=== PATIENT | male | born 1945 | race Caucasian/White ===

== ENCOUNTER 2016-12-05 11:55 | Observation (INO) | payer OTHER, MEDICARE ==
[~2016-12-05] VITALS: Ht 180.3 cm; Wt 90.0 kg
[2016-12-05 11:56] VITALS: BP 134/63; PULSE 68; RESP 20; TEMP 98.3; O2SAT 95
--- NOTE | 2016-12-05 12:04 | PD ---
Physical Exam Date Seen by Provider: Dec 05, 2016 Time Seen by Provider: 12:02 Narrative 71-year-old white male resents emergency department after being referred by the [place] for evaluation of left arm pain and weakness. Patient has a history of coronary artery disease. He also has a history of [place] and PTSD. He is 100% service-connected. He states that pain started last evening. He denies any trauma. The patient states that the pain appears to be localized in his elbow which causes him to feel weak. He denies any anginal chest pain. No shortness breath or wheezing. Vital signs reviewed. Awaiting bed placement. Data Data Last Documented VS Vital Signs Date Time Temp Pulse Resp B/P (MAP) Pulse Ox O2 Delivery O2 Flow Rate FiO2 12/05/16 11:56 98.3 68 20 134/63 (86) 95 Room Air Orders Orders Electrocardiogram (12/05/16 12:02) [facility] Medical Record Reviewed: No Supervised Visit with MICHAEL: Mohan Son Dec 05, 2016 12:04
[2016-12-05] MEDS ORDERED: SIMV40TA PO (12:31)
[2016-12-05] MEDS ORDERED: [UNRECOGNIZED DRUG - CODE] RECTAL (12:31)
[2016-12-05] MEDS ORDERED: AMLO10TA2 PO (12:31)
[2016-12-05] MEDS ORDERED: APRI0.372 PO (12:31)
[2016-12-05] MEDS ORDERED: HYDR25TA5 PO (12:31)
[2016-12-05] MEDS ORDERED: POTA-243 PO ×2 (12:31→16:53)
[2016-12-05] MEDS ORDERED: FERR325T8 PO (12:31)
[2016-12-05] MEDS ORDERED: ASPI81TA11 PO (12:31)
--- NOTE | 2016-12-05 12:50 | RADRPT ---
EXAM DATE/TIME: 12/05/2016 12:39 [facility] COMPARISON: No previous studies available for comparison. INDICATIONS : Midsternal to left chest pains radiating into left arm, with left arm numbness. MEDICAL HISTORY : Myocardial infarction. SURGICAL HISTORY : Cardiac cath. ENCOUNTER: Initial ACUITY: 2 days PAIN SCORE: 9/10 LOCATION: Left chest FINDINGS: Portable AP view of the chest demonstrates a normal-sized cardiac silhouette. No effusion, consolidat ion, or pneumothorax is visualized. The bones and soft tissues demonstrate no acute abnormality. CONCLUSION: No acute cardiopulmonary abnormality is identified. Giuliano Corrales MD on December 05, 2016 at 12:47 Board Certified Radiologist. This report was verified electronically.
[2016-12-05] MEDS ORDERED: ACETAMINOPHEN 325 MG TAB PO ONE (13:00)
[2016-12-05 13:02] LABS: BASOPHIL % 0.2 % (0.0-2.0); EOSINOPHIL % 0.1 % (0.0-4.0); HEMATOCRIT 39.7 % (39.0-51.0); HEMO FLAGS DIFF FINAL; LYMPH % 8.5 % (9.0-44.0); LYMPHOCYTE # 0.9 TH/MM3 (1.0-4.8); MEAN CELL VOLUME 91.7 FL (80.0-100.0); MEAN CORPUSCULAR HEMOGLOBIN 31.5 PG (27.0-34.0); MEAN CORPUSCULAR HGB CONC 34.3 % (32.0-36.0); NEUT % 78.2 % (16.0-70.0); PLATELET COUNT 223 TH/MM3 (150-450); RED BLOOD COUNT 4.33 MIL/MM3 (4.50-5.90); RED CELL DISTRIBUTION WIDTH 13.3 % (11.6-17.2); WHITE BLOOD COUNT 10.2 TH/MM3 (4.0-11.0)
--- NOTE | 2016-12-05 13:05 | PD ---
HPI Chief Complaint: Cardiac Complaint Time Seen by Provider: 12:18 Travel History International Travel<30 days: No Contact w/Intl Traveler<30days: No Traveled to known affect area: No History of Present Illness HPI 71-year-old male that presents to the ED for evaluation of left-sided shoulder pain that radiates down the left arm with no injury since yesterday. Patient has a significant history including coronary artery disease about 20 years ago. Patient takes medications for high blood pressure, high cholesterol and aspirin daily. Patient states that she used to smoke but no longer. He used to take opiate medication about 3 years ago but no longer takes them and refuses any open medication today. Per patient she is mainly here because his concerned about cardiac disease. He has not had a stress test in about 20 years per patient. He has no follow with [facility]. Patient briefly mention to the ED triage provider that he was also feeling depressed but no suicidal or homicidal. I did offer patient psychiatric evaluation today and he declined stating that he has his own psychiatrist. Per patient he is mainly here for the left-sided shoulder discomfort. Per patient the pain is reproducible with movement. He denies any injury or trauma. Per patient at the moment is 3 out of 10. Nothing makes it better. Per patient when he moves it makes it worse. Mainly on the right side but radiates down the arm. Allergy to penicillin. PFSH Past Medical History Anxiety: Yes Cardiovascular Problems: Yes ([place]) Coronary Artery Disease: Yes Myocardial Infarction: Yes Past Surgical History Other Surgery: Yes (SHRAPNAL REMOVED FROM LEGS) Social History Alcohol Use: No Tobacco Use: No Substance Use: Yes (THC) Allergies-Medications (Allergen,Severity, Reaction): Coded Allergies: Penicillins (Verified Allergy, Mild, Rash, 12/05/16) Reported Meds & Prescriptions Reported Meds & Active Scripts Active Reported Simvastatin 40 Mg Tab 40 Mg PO HS Klor-Con 10 (Potassium Chloride) 10 Meq Tab 10 Meq PO QID Rowasa Enema (Mesalamine-Cleanser Enema) 4 Gm/60 Ml Enem 4 Gm RECTAL HS Apriso (Mesalamine) 0.375 Gm Caper 1.5 Gm PO DAILY Hydrochlorothiazide 25 Mg Tab 25 Mg PO DAILY Ferrous Sulfate 325 Mg (65 Mg Iron) Tablet 325 Mg PO DAILY Aspirin EC (Aspirin) 81 Mg Tabdr 81 Mg PO DAILY Amlodipine (Amlodipine Besylate) 10 Mg Tab 10 Mg PO DAILY Review of Systems Except as stated in HPI: all other systems reviewed are Neg Physical Exam Narrative GENERAL: SKIN: Warm and dry. HEAD: Atraumatic. Normocephalic. EYES: Pupils equal and round. No scleral icterus. No injection or drainage. ENT: No nasal bleeding or discharge. Mucous membranes pink and moist. Tongue is midline. No uvula deviation. NECK: Trachea midline. No JVD. CARDIOVASCULAR: Regular rate and rhythm. No murmurs, S3, S4. RESPIRATORY: No accessory muscle use. Clear to auscultation. Breath sounds equal bilaterally. GASTROINTESTINAL: Abdomen soft, non-tender, nondistended. Hepatic and splenic margins not palpable. MUSCULOSKELETAL: Extremities without clubbing, cyanosis, or edema. No obvious deformities. Full range of motion of the upper and lower extremities bilaterally. Some pain reproducible with range of motion of the left arm but not completely. NEUROLOGICAL: Awake and alert. No obvious cranial nerve deficits. Motor grossly within normal limits. Five out of 5 muscle strength in the arms and legs. Normal speech. PSYCHIATRIC: Appropriate mood and affect; insight and judgment normal. Data Data Last Documented VS Vital Signs Date Time Temp Pulse Resp B/P (MAP) Pulse Ox O2 Delivery O2 Flow Rate FiO2 12/05/16 11:56 98.3 68 20 134/63 (86) 95 Room Air Orders Orders Electrocardiogram (12/05/16 12:02) Electrocardiogram (12/05/16 12:18) Complete Blood Count With Diff (12/05/16 12:18) Comprehensive Metabolic Panel (12/05/16 12:18) Ckmb (Isoenzyme) Profile (12/05/16 12:18) Troponin I (12/05/16 12:18) Prothrombin Time / Inr (Pt) (12/05/16 12:18) Act Partial Throm Time (Ptt) (12/05/16 12:18) Lipase (12/05/16 12:18) Chest, Single Ap (12/05/16 12:18) Iv Access Insert/Monitor (12/05/16 12:18) Ecg Monitoring (12/05/16 12:18) Oximetry (12/05/16 12:18) Drug Screen, Random Urine (12/05/16 12:18) Alcohol (Ethanol) (12/05/16 12:18) Salicylates (Aspirin) (12/05/16 12:18) Tylenol (Acetaminophen) (12/05/16 12:18) Us Arm Venous Doppler (12/05/16 ) Humerus (Min 2vws) (12/05/16 ) Acetaminophen (Tylenol) (12/05/16 13:00) Aspirin (Aspirin) (12/05/16 13:15) Potassium Chloride (Kcl) (12/05/16 14:00) Admit Order (Ed Use Only) (12/05/16 14:15) Labs Laboratory Tests Test 12/05/16 12:30 12/05/16 13:15 White Blood Count 10.2 TH/MM3 Red Blood Count 4.33 MIL/MM3 Hemoglobin 13.6 GM/DL Hematocrit 39.7 % Mean Corpuscular Volume 91.7 FL Mean Corpuscular Hemoglobin 31.5 PG Mean Corpuscular Hemoglobin Concent 34.3 % Red Cell Distribution Width 13.3 % Platelet Count 223 TH/MM3 Mean Platelet Volume 8.8 FL Neutrophils (%) (Auto) 78.2 % Lymphocytes (%) (Auto) 8.5 % Monocytes (%) (Auto) 13.0 % Eosinophils (%) (Auto) 0.1 % Basophils (%) (Auto) 0.2 % Neutrophils # (Auto) 8.0 TH/MM3 Lymphocytes # (Auto) 0.9 TH/MM3 Monocytes # (Auto) 1.3 TH/MM3 Eosinophils # (Auto) 0.0 TH/MM3 Basophils # (Auto) 0.0 TH/MM3 CBC Comment DIFF FINAL Differential Comment Prothrombin Time 10.8 SEC Prothromb Time International Ratio 1.0 RATIO Activated Partial Thromboplast Time 26.7 SEC Blood Urea Nitrogen 15 MG/DL Creatinine 1.26 MG/DL Random Glucose 122 MG/DL Total Protein 7.5 GM/DL Albumin 3.6 GM/DL Calcium Level 8.8 MG/DL Alkaline Phosphatase 83 U/L Aspartate Amino Transf (AST/SGOT) 12 U/L Alanine Aminotransferase (ALT/SGPT) 19 U/L Total Bilirubin 1.0 MG/DL Sodium Level 138 MEQ/L Potassium Level 2.8 MEQ/L Chloride Level 101 MEQ/L Carbon Dioxide Level 28.1 MEQ/L Anion Gap 9 MEQ/L Estimat Glomerular Filtration Rate 57 ML/MIN Total Creatine Kinase 74 U/L Troponin I LESS THAN 0.02 NG/ML Lipase 43 U/L Acetaminophen Level LESS THAN 2.0 MCG/ML Ethyl Alcohol Level LESS THAN 3 MG/DL Salicylates Level LESS THAN 1.7 MG/DL MDM Medical Decision Making Medical Screen Exam Complete: Yes Emergency Medical Condition: Yes Medical Record Reviewed: Yes Interpretation(s) EKG shows sinus rhythm with no sign of acute ischemia or arrhythmia read by me and attending. Troponin and CK-MB negative. Last Impressions Chest X-Ray 12/05/16 1218 Signed Impressions: Service Date/Time: Monday, December 05, 2016 12:39 - CONCLUSION: No acute cardiopulmonary abnormality is identified. Giuliano Corrales MD Upper Extremity Ultrasound 12/05/16 0000 Signed Impressions: Service Date/Time: Monday, December 05, 2016 12:50 - CONCLUSION: Negative for deep venous thrombosis. Vin Tariq MD FACR Humerus X-Ray 12/05/16 0000 Signed Impressions: Service Date/Time: Monday, December 05, 2016 13:12 - CONCLUSION: Mild degenerative changes AC joint otherwise negative for fracture.. Vin Tariq MD FACR CBC & BMP Diagram 12/05/16 12:30 Total Protein 7.5, Albumin 3.6, Calcium Level 8.8, Alkaline Phosphatase 83, Aspartate Amino Transf (AST/SGOT) 12 L, Alanine Aminotransferase (ALT/SGPT) 19, Total Bilirubin 1.0 Lipase within normal limits. Differential Diagnosis Chest pain versus ACS versus a typical chest pain versus DVT versus arm pain versus normal exam Narrative Course 71-year-old male that presents to the ED for evaluation of left-sided arm pain with concern for heart disease. Patient does have a significant history of ACS including having CABG himself. He states that he developed the pain yesterday with no injury. He denies doing anything extraneous. Patient was concerned ACS. Patient was seen at the [facility] today and was sent here for evaluation of this. He also did complain of some depression to the initial triage provider but he states that he does not want to be evaluated for that more for the left arm pain. Patient does have risk factors including age, or history of smoking, hypertension, heart disease on himself. He has not had a stress test in some time. At this time I recommend labs and imaging. Patient was given aspirin and Tylenol for his discomfort as well as for ACS. Labs and imaging showed no sign of acute disease. More specifically no sign of blood clots or positive troponin. Patient feels reassured. I discussed the case with my attending Dr. Wharton who recommends admission to the chest pain center secondary to her risk factors and possibility of this still being a cardiac equivalent. This was discussed in length with the patient who is in agreement with admission for the chest pain center. Patient was admitted. Diagnosis Primary Impression: Chest pain in adult Admitting Information Admitting Physician Requests: Observation Guille Nicholas Dec 05, 2016 13:05
[2016-12-05 13:15] LABS: APTT (PATIENT) 26.7 SEC (24.3-30.1); PROTHROMBIN TIME - PATIENT 10.8 SEC (9.8-11.6)
[2016-12-05] MEDS ORDERED: ASPIRIN 325 MG TAB PO ONE (13:15)
--- NOTE | 2016-12-05 13:17 | RADRPT ---
EXAM DATE/TIME: 12/05/2016 13:12 [facility] COMPARISON: No previous studies available for comparison. INDICATIONS : Left arm pain. MEDICAL HISTORY : Myocardial infarction. SURGICAL HISTORY : Cardiac cath. ENCOUNTER: Initial ACUITY: 1 day PAIN SCORE: 8/10 LOCATION: Left Humerus. FINDINGS: Two view examination of the left humerus demonstrates no evidence of fracture or dislocation. Bony m ineralization is normal. The soft tissue structures are intact. CONCLUSION: Mild degenerative changes AC joint otherwise negative for fracture.. Vin Tariq MD FACR on December 05, 2016 at 13:15 Board Certified Radiologist. This report was verified electronically.
--- NOTE | 2016-12-05 13:30 | RADRPT ---
EXAM DATE/TIME: 12/05/2016 12:50 [facility] COMPARISON: No previous studies available for comparison. INDICATIONS : Left arm swelling. MEDICAL HISTORY : Myocardial infarction. Coronary artery disease. SURGICAL HISTORY : Shrapnel removed from leg. ENCOUNTER: Initial ACUITY: 1 day PAIN SCORE: 8/10 LOCATION: Left arm. FINDINGS: There is spontaneous flow documented in the brachial, basilic, cephalic, axillary, and subclavian vei ns. The vessels are compressible and augmentation response is documented. No filling defects are se en. The flow is phasic with respiration. Direction of flow in the jugular vein is caudal. CONCLUSION: Negative for deep venous thrombosis. Vin Tariq MD FACR on December 05, 2016 at 13:28 Board Certified Radiologist. This report was verified electronically.
[2016-12-05 13:41] LABS: ALKALINE PHOSPHATASE 83 U/L (45-117); ALT (GPT) 19 U/L (12-78); ANION GAP 9 MEQ/L (5-15); AST (GOT) 12 U/L (15-37); BICARBONATE 28.1 MEQ/L (21.0-32.0); BLOOD UREA NITROGEN 15 MG/DL (7-18); CHLORIDE 101 MEQ/L (98-107); GLOMERULAR FILTRATION RATE 57 ML/MIN (>89); SODIUM (NA) 138 MEQ/L (136-145)
[2016-12-05 13:44] LABS: CREATINE KINASE 74 U/L (39-308)
[2016-12-05 13:45] LABS: ACETAMINOPHEN LESS THAN 2.0 MCG/ML (10.0-30.0); ALCOHOL LESS THAN 3 MG/DL (0-5)
[2016-12-05 13:49] LABS: POTASSIUM 2.8 MEQ/L (3.5-5.1)
[2016-12-05] MEDS ORDERED: POTASSIUM CHLORIDE 20 MEQ CONTROLLED RELEASE TAB PO ONE (14:00)
[2016-12-05] MEDS ORDERED: METO50TA PO (15:06)
--- NOTE | 2016-12-05 15:12 | HHI.HP ---
HPI Primary Care Physician [facility] Chief Complaint Left arm pain History of Present Illness This is a 71-year-old male with stated history of CAD that presents to ED with a complaint of waking up last evening was left arm pain. He specifically points to his left elbow and states that it hurts to move it. Denies recent trauma. Denies chest discomfort. Denies shortness breath, nausea, or diaphoresis. He states that discomfort is better constantly since last night but is worsened with even the slightest movement. Denies neck or back pain. Denies numbness or tingling or weakness in the extremity. States that he has heart disease. States that 20 years ago he had a cardiac catheterization in [place] with angioplasty. Has not followed up with cardiology since. He states the [place] physician he sees at the [facility] takes care everything. Denies recent illness. Denies fevers or chills. Patient was found to have a potassium of 2.8 in the ED. States he has been on hydrochlorothiazide but no potassium supplementation for 2 years. Review of Systems General: Patient denies fevers, chills recent, and recent travel HEENT: Patient denies headache, sore throat, difficulty swallowing. Cardiovascular: Denies chest discomfort as mentioned above. Denies sensation of heart beating rapidly or irregularly. No syncope. Respiratory: Denies shortness of breath or inspirational chest discomfort. Denies coughing wheezing or hemoptysis. GI: Patient denies nausea, vomiting, diarrhea, abdominal pain, bloody stools. Musculoskeletal: Complains of pain in his left elbow. The discomfort radiates proximally and distally. Denies trauma. Denies swelling. Has not noticed discoloration. Neurovascular: Patient denies numbness, tingling, weakness in extremities. Denies headache. Endocrine: Denies polyuria and polydipsia. Hematologic: Denies easy bruising. Skin: Denies rash or itching. Past Family Social History Allergies: Coded Allergies: Penicillins (Verified Allergy, Mild, Rash, 12/05/16) Past Medical History Stated history of CAD with angioplasty proximally 20 years ago in [place]. Hyperlipidemia, hypertension, PTSD, ulcerative colitis. Denies diabetes. Past Surgical History Cardiac catheterization with angioplasty about 20 years ago. Surgery on his legs during [place]. Reported Medications Reported Meds & Active Scripts Active Reported Simvastatin 40 Mg Tab 40 Mg PO HS Klor-Con 10 (Potassium Chloride) 10 Meq Tab 10 Meq PO QID Rowasa Enema (Mesalamine-Cleanser Enema) 4 Gm/60 Ml Enem 4 Gm RECTAL HS Apriso (Mesalamine) 0.375 Gm Caper 1.5 Gm PO DAILY Hydrochlorothiazide 25 Mg Tab 25 Mg PO DAILY Ferrous Sulfate 325 Mg (65 Mg Iron) Tablet 325 Mg PO DAILY Aspirin EC (Aspirin) 81 Mg Tabdr 81 Mg PO DAILY Amlodipine (Amlodipine Besylate) 10 Mg Tab 10 Mg PO DAILY Active Ordered Medications Current Medications Medications (Trade) Dose Ordered Sig/Alejandro Route Start Time Stop Time Status Last Admin (NS Flush) 2 ml UNSCH PRN IVF 12/05/16 15:15 UNV (NS Flush) 2 ml BID IVF 12/05/16 21:00 UNV (Tylenol) 500 mg Q4H PRN PO 12/05/16 15:15 UNV ([place] 7.5-325 Mg) 1 tab Q4H PRN PO 12/05/16 15:15 UNV (Zofran Inj) 4 mg Q6H PRN IV 12/05/16 15:15 UNV Family History Patient does not really know his family medical history. Social History Patient quit smoking approximately 30 years ago but prior that he smoked about 1 pack of cigarettes daily for 20 years. Denies alcohol for 40 years. Smokes marijuana 3-4 times a week. Physical Exam Vital Signs Vital Signs Date Time Temp Pulse Resp B/P (MAP) Pulse Ox O2 Delivery O2 Flow Rate FiO2 12/05/16 11:56 98.3 68 20 134/63 (86) 95 Room Air Physical Exam GENERAL: This is a well-nourished, well-developed patient, in no apparent distress. Patient speaks in clear complete sentences. Patient is pleasant. HEENT: Head is atraumatic and normocephalic. Neck is supple without lymphadenopathy and trachea is midline. No JVD or carotid bruits. CARDIOVASCULAR: Regular rate and rhythm without murmurs, gallops, or rubs. RESPIRATORY: Clear to auscultation. Breath sounds equal bilaterally. No wheezes , rales, or rhonchi. Chest wall is nontender. No use of accessory muscles. GASTROINTESTINAL: Abdomen is nontender, nondistended. Abdomen soft. No obvious pulsatile mass or bruit. No CVA tenderness. Strong femoral pulses bilaterally. Normal bowel sounds in all quadrants. MUSCULOSKELETAL: There is discomfort when palpating left elbow on antecubital fossa region as well as the posterior aspect. Discomfort with flexion, extension, and internal and external rotation. No erythema or edema. Strong radial pulses. No calf tenderness or edema, no Homans sign. Strong pulses in upper and lower extremities. NEUROLOGICAL: Patient is alert and oriented. Cranial nerves 2-12 are grossly intact. No focal deficits and speech is clear. SKIN: No rash and turgor is normal. Laboratory Laboratory Tests Test 12/05/16 12:30 12/05/16 13:15 12/05/16 14:30 White Blood Count 10.2 Red Blood Count 4.33 Hemoglobin 13.6 Hematocrit 39.7 Mean Corpuscular Volume 91.7 Mean Corpuscular Hemoglobin 31.5 Mean Corpuscular Hemoglobin Concent 34.3 Red Cell Distribution Width 13.3 Platelet Count 223 Mean Platelet Volume 8.8 Neutrophils (%) (Auto) 78.2 Lymphocytes (%) (Auto) 8.5 Monocytes (%) (Auto) 13.0 Eosinophils (%) (Auto) 0.1 Basophils (%) (Auto) 0.2 Neutrophils # (Auto) 8.0 Lymphocytes # (Auto) 0.9 Monocytes # (Auto) 1.3 Eosinophils # (Auto) 0.0 Basophils # (Auto) 0.0 CBC Comment DIFF FINAL Differential Comment Prothrombin Time 10.8 Prothromb Time International Ratio 1.0 Activated Partial Thromboplast Time 26.7 Blood Urea Nitrogen 15 Creatinine 1.26 Random Glucose 122 Total Protein 7.5 Albumin 3.6 Calcium Level 8.8 Alkaline Phosphatase 83 Aspartate Amino Transf (AST/SGOT) 12 Alanine Aminotransferase (ALT/SGPT) 19 Total Bilirubin 1.0 Sodium Level 138 Potassium Level 2.8 Chloride Level 101 Carbon Dioxide Level 28.1 Anion Gap 9 Estimat Glomerular Filtration Rate 57 Total Creatine Kinase 74 Troponin I LESS THAN 0.02 Lipase 43 Acetaminophen Level LESS THAN 2.0 Ethyl Alcohol Level LESS THAN 3 Salicylates Level LESS THAN 1.7 Result Diagram: 12/05/16 1230 12/05/16 1230 Imaging Last 48 hours Impressions Chest X-Ray 12/05/16 1218 Signed Impressions: Service Date/Time: Monday, December 05, 2016 12:39 - CONCLUSION: No acute cardiopulmonary abnormality is identified. Giuliano Corrales MD Upper Extremity Ultrasound 12/05/16 0000 Signed Impressions: Service Date/Time: Monday, December 05, 2016 12:50 - CONCLUSION: Negative for deep venous thrombosis. Vin Tariq MD FACR Humerus X-Ray 12/05/16 0000 Signed Impressions: Service Date/Time: Monday, December 05, 2016 13:12 - CONCLUSION: Mild degenerative changes AC joint otherwise negative for fracture.. Vin Tariq MD FACR Course Initial EKG is sinus rhythm without significant ST segment depressions or elevations. Caprini VTE Risk Assessment Caprini VTE Risk Assessment: Mod/High Risk (score >= 2) Caprini Risk Assessment Model Point Value = 1 Point Value = 2 Point Value = 3 Point Value = 5 Age 41-60 Minor surgery BMI > 25 kg/m2 Swollen legs Varicose veins or History of unexplained or recurrent spontaneous Oral contraceptives or hormone replacement Sepsis (< 1 month) Serious lung disease, including pneumonia (< 1 month) Abnormal pulmonary function Acute myocardial infarction Congestive heart failure (< 1 month) History of inflammatory bowel disease Medical patient at bed rest Age 61-74 Arthroscopic surgery Major open surgery (> 45 min) Laparoscopic surgery (> 45 min) Malignancy Confined to bed (> 72 hours) Immobilizing plaster cast Central venous access Age >= 75 History of VTE Family history of VTE Factor V Leiden Prothrombin [id number] Lupus anticoagulant Anticardiolipin antibodies Elevated serum homocysteine Heparin-induced thrombocytopenia Other congenital or acquired thrombophilia Stroke (< 1 month) Elective arthroplasty Hip, pelvis, or leg fracture Acute spinal cord injury (< 1 month) Prophylaxis Regimen Total Risk Factor Score Risk Level Prophylaxis Regimen 0-1 Low Early ambulation 2 Moderate Order ONE of the following: *Sequential Compression Device (SCD) *Heparin 5000 units SQ BID 3-4 Higher Order ONE of the following medications: *Heparin 5000 units SQ TID *Enoxaparin/Lovenox 40 mg SQ daily (WT < 150 kg, CrCl > 30 mL/min) *Enoxaparin/Lovenox 30 mg SQ daily (WT < 150 kg, CrCl > 10-29 mL/min) *Enoxaparin/Lovenox 30 mg SQ BID (WT < 150 kg, CrCl > 30 mL/min) AND/OR *Sequential Compression Device (SCD) 5 or more Highest Order ONE of the following medications: *Heparin 5000 units SQ TID (Preferred with Epidurals) *Enoxaparin/Lovenox 40 mg SQ daily (WT < 150 kg, CrCl > 30 mL/min) *Enoxaparin/Lovenox 30 mg SQ daily (WT < 150 kg, CrCl > 10-29 mL/min) *Enoxaparin/Lovenox 30 mg SQ BID (WT < 150 kg, CrCl > 30 mL/min) AND *Sequential Compression Device (SCD) Assessment and Plan Assessment and Plan * Arm pain: Patient's discomfort appears to be musculoskeletal in nature. He will continue to have serial cardiac enzymes and EKGs for ruling out purposes and will be seen by Dr. Justo Elena of cardiology in the chest pain center and at that time further plan will be determined. X-rays of the humerus do not reveal any acute. No DVT. * Hypertension: We'll discuss Hydrocort thiazide with Dr. Justo Elena. Otherwise resume all medication. He states he has continued Hydrocort thiazide but has not taken Testim supplementation for 2 years. * Hypokalemia: We'll replace potassium and discuss medication. * Hyperlipidemia: Continue current medication. Patient is stable at this time. He is agreeable to this plan. Stewart Hubbard Dec 05, 2016 15:12
[2016-12-05] MEDS ORDERED: SODIUM CHLORIDE 0.9% FLUSH 10 ML FLUSH IV FLUSH PRN (15:15)
[2016-12-05] MEDS ORDERED: ONDANSETRON HCL 4 MG/2 ML VIAL IV PRN (15:15)
[2016-12-05] MEDS ORDERED: ALPRAZolam 0.25 MG TAB PO PRN (15:15)
[2016-12-05] MEDS ORDERED: ACETAMINOPHEN/HYDROcodone 325 MG/7.5 MG TAB PO PRN (15:15)
[2016-12-05] MEDS ORDERED: ACETAMINOPHEN 500 MG CPLT PO PRN (15:15)
[2016-12-05 15:51] VITALS: BP 110/64; PULSE 65; RESP 16; TEMP 98.4; O2SAT 91
[2016-12-05] MEDS ORDERED: POTASSIUM CHLORIDE 25 MEQ EFFERVESCENT TAB PO ONE (16:30)
[2016-12-05] MEDS ORDERED: KETOROLAC TROMETHAMINE 30 MG/ML (IVP) VIAL IVP ONE (16:30)
[2016-12-05 16:31] LABS: CREATINE KINASE 63 U/L (39-308)
--- NOTE | 2016-12-05 16:54 | HHI.DCPOC ---
Discharge Care Plan Diagnosis: (1) Elbow pain (2) Hypertension (3) Hyperlipidemia (4) Hypokalemia Goals to Promote Your Health * To prevent worsening of your condition and complications * To maintain your health at the optimal level Directions to Meet Your Goals HAVE YOUR POTASSIUM LEVEL RECHECKED IN THREE TO FIVE DAYS AT THE PR. Take your medications as prescribed Follow your dietary instruction Follow activity as directed Keep your appointments as scheduled Take your immunizations and boosters as scheduled If your symptoms worsen call your PCP, if no PCP go to Urgent Care Center or Emergency Room Smoking is Dangerous to Your Health. Avoid second hand smoke Call the 24-hour hour crisis hotline for domestic abuse at Stewart Hubbard Dec 05, 2016 16:54
[2016-12-05] MEDS ORDERED: SODIUM CHLORIDE 0.9% FLUSH 10 ML FLUSH IV FLUSH SCH (21:00)
[2016-12-05] MEDS ORDERED: METOPROLOL TARTRATE 50 MG TAB PO SCH (21:00)
[2016-12-05] MEDS ORDERED: PRAVASTATIN SOD 80 MG TAB PO SCH (21:00)
[2016-12-05] MEDS ORDERED: NON-FORMULARY DRUG (Simvastatin 40 MG) PO SCH (21:00)
[2016-12-06] MEDS ORDERED: ASPIRIN 325 MG TAB PO SCH (09:00)
[2016-12-06] MEDS ORDERED: FERROUS SULFATE 325 MG (65 MG ELEMENTAL IRON) TAB PO SCH (09:00)
[2016-12-06] MEDS ORDERED: MESALAMINE 375 MG PO SCH (09:00)
[2016-12-06] MEDS ORDERED: NON-FORMULARY DRUG (Mesalamine ER 24 HR (Apriso) 1.5 GM) PO SCH (09:00)
--- NOTE | 2016-12-06 10:36 | EKG ---
Date Performed: 12/05/2016 Time Performed: 16:12:09 PTAGE: 71 years EKG: Sinus rhythm WITH FIRST DEGREE AV BLOCK NONSPECIFIC T-WAVE ABNORMALITY ABNORMAL ECG NO SIG CHANGE PREVIOUS TRACING : 12/05/2016 12.08 DOCTOR: Chang Greco Interpretating Date/Time 12/06/2016 10:34:29
--- NOTE | 2016-12-06 10:36 | EKG ---
Date Performed: 12/05/2016 Time Performed: 12:08:12 PTAGE: 71 years EKG: Sinus rhythm NONSPECIFIC T-WAVE ABNORMALITY BORDERLINE ECG T WAVE CHANGES ARE MORE PROMINANT PREVIOUS TRACING : 09/29/1995 16.19 DOCTOR: Chang Greco Interpretating Date/Time 12/06/2016 10:35:14
== END 2016-12-05 18:07 | disposition home or self-care (01) ==
LOC: NEPC 11:55 → NEDA 14:19 → NEPHCDU 16:09
PROVIDERS: ADMIT Internal Medicine Cardiovascular Disease; ATTEND Internal Medicine Cardiovascular Disease
DX: M25.529 Pain in unspecified elbow (principal); I10 Essential (primary) hypertension; E78.5 Hyperlipidemia, unspecified; E87.6 Hypokalemia; I25.10 Atherosclerotic heart disease of native coronary artery without angina pectoris; F12.90 Cannabis use, unspecified, uncomplicated; F43.10 Post-traumatic stress disorder, unspecified; F32.9 Major depressive disorder, single episode, unspecified; Z95.1 Presence of aortocoronary bypass graft
CPT/HCPCS: 71010; 73060; 80053; 80307; 82550; 83690; 84484; 85025; 85610; 85730; 93005; 93971; 96374; 96376; 99285; G0378; J1885